=== PATIENT | male | born 2000 | race Caucasian/White ===

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

== ENCOUNTER 2020-08-04 10:29 | Emergency (ER) | payer OTHER ==
[~2020-08-04] VITALS: Ht 180.3 cm; Wt 72.7 kg
[~2020-08-04 10:29] MED LIST: INSU100C SQ-INSULIN; INSU100V8 SQ
--- NOTE | 2020-08-04 11:04 | NUR ---
PT AMBULATED TO ROOM FROM TRIAGE. PT CO N/V/D AND CHILLS/BODY ACHES SINCE LAST NIGHT. PT STATED THAT HE HAS BEEN VOMITING ABOUT EVERY 10-15 MINUTES AND IS UNABLE TO KEEP DOWN ANY FLUID. PT HAS TYPE 1 DIABETES. PT STATED THAT HE HAS NOT BEEN IN [facility] BEFORE, BUT THINKS THIS IS DUE TO FOOD POISONING. PT STATED BLOOD GLUCOSE THIS MORNING WAS 340 AND TOOK 6U INSULIN. PT STATED THAT HIS BLOOD GLUCOSE OCCASIONALLY GETS UP THIS HIGH AND HAS NOT BEEN IN [facility] BEFORE.
[2020-08-04 11:19] LABS: PH, VENOUS 7.588 pH (7.320-7.420)
[2020-08-04 11:21] LABS: FIO2 ROOM AIR %
[2020-08-04 11:29] LABS: BASOPHILS % (AUTO) 0 % (0-1); EOSINOPHILS % (AUTO) 0 % (1-7); LYMPHOCYTES % (AUTO) 2 % (22-44); MEAN CORPUSCULAR HGB CONC 35.9 g/dL (33.2-36.2); MONOCYTES % (AUTO) 6 % (2-9); NEUTROPHILS % (AUTO) 92 % (42-75); PLATELET COUNT 210 x10^3/uL (130-400); RED BLOOD COUNT 5.61 x10^6/uL (4.38-5.82); RED CELL DISTRIBUTION WIDTH 12.7 % (9.4-14.8)
[2020-08-04] MEDS ORDERED: SODIUM CHLORIDE 0.9% 1,000ML IVBOLUS ONE ×2 (11:30→12:30)
[2020-08-04 11:35] LABS: ALANINE AMINOTRANSFERASE 26 U/L (12-78); ALBUMIN 4.4 g/dL (3.4-5.0); ANION GAP 14 mmol/L (5-15); CALCIUM 9.9 mg/dL (8.5-10.1); CHLORIDE 101 mmol/L (98-107); CREATININE 1.16 mg/dL (0.7-1.3)
[2020-08-04 11:38] LABS: ALKALINE PHOSPHATASE 117 U/L (45-117); BILIRUBIN,TOTAL 1.6 mg/dL (0.2-1.0); TOTAL PROTEIN 7.8 g/dL (6.4-8.2)
[2020-08-04] MEDS ORDERED: ONDANSETRON 2MG/ML, 2ML ONE (11:50)
[2020-08-04 11:51] LABS: ACETONE, SERUM Moderate(40mg/dL) (Negative)
[2020-08-04] MEDS ORDERED: ONDANSETRON 2MG/ML, 2ML IVPush ONE (12:00)
--- NOTE | 2020-08-04 12:24 | NUR ---
PT RESTING COMFORTABLY IN GURNEY. SECOND LITER BOLUS INFUSING. PT NAUSEA SUBSIDED WITH ZOFRAN. FSBG 285. CALL LIGHT WITHIN REACH.
[2020-08-04 13:33] VITALS: BP 132/75
--- NOTE | 2020-08-04 13:33 | NUR ---
DISCHARGE INSTRUCTIONS REVIEWED WITH PT. ALL QUESTIONS ANSWERED AT THIS TIME.
== END 2020-08-04 13:35 | disposition home or self-care (01) ==
LOC: ED 11:15
DX: E86.0 Dehydration (principal); R11.2 Nausea with vomiting, unspecified; R10.13 Epigastric pain; E10.65 Type 1 diabetes mellitus with hyperglycemia; Z79.4 Long term (current) use of insulin
CPT/HCPCS: 36415; 80053; 82010; 82803; 82962; 83690; 85025; 96361; 96374; 99283; J2405; J7030